=== PATIENT | male | born 1945 | race Caucasian/White ===

== ENCOUNTER 2025-09-04 07:30 | Inpatient (IN) | payer MEDICAID, OTHER ==
[~2025-09-04] VITALS: Ht 160 cm; Wt 60.8 kg
[2025-09-04 07:33] VITALS: O2SAT 96
[2025-09-04] MEDS: MECLIZINE 25MG TABLET PO ONE (08:28)
[2025-09-04] MEDS: SODIUM CHLORIDE 0.9% 1,000 ML IV ONE (08:28)
[2025-09-04] MEDS: METOCLOPRAMIDE HCL 10MG/2ML VIAL IV ONE (08:28)
[2025-09-04 08:34] LABS: BASOPHILS % 0.9 % (0.0-2.0); EOSINOPHILS % 2.5 % (0.0-5.0); HEMATOCRIT. 42.2 % (42.0-52.0); HEMOGLOBIN. 14.1 g/dL (14.0-18.0); LYMPHOCYTES % 45.2 % (20.0-50.0); MEAN PLATELET VOLUME 7.9 fl (7.4-10.4); MONOCYTES % 6.5 % (2.0-8.0); NEUTROPHILS % 44.9 % (40.0-76.0); PLATELET 271 x1000/uL (130-400); RED BLOOD CELL COUNT 5.17 mill/uL (4.7-6.1); RED CELL DISTRIBUTION WIDTH 13.4 % (11.6-14.6)
[2025-09-04 08:52] LABS: CREATININE 0.9 mg/dL (0.6-1.3); PROTEIN TOTAL 7.7 g/dL (6.0-8.3); UREA NITROGEN BLOOD 8 mg/dL (9-23)
[2025-09-04 08:54] LABS: ASPARTATE AMINOTRANSFERASE 38 IU/L (<34); BILIRUBIN DIRECT 0.1 mg/dL (<=3.0); BILIRUBIN TOTAL 0.5 mg/dL (0.1-1.0)
[2025-09-04 08:55] LABS: TROPONIN I HIGH SENSITIVITY 16 ng/L (3.0-53)
[2025-09-04 09:36] LABS: CLARITY URINE CLEAR (CLEAR); COLOR URINE YELLOW (YELLOW); GLUCOSE URINE NEGATIVE (NEGATIVE); KETONES URINE NEGATIVE (NEGATIVE); LEUKOCYTE ESTERASE URINE NEGATIVE (NEGATIVE); NITRITE URINE NEGATIVE (NEGATIVE); OCCULT BLOOD URINE NEGATIVE (NEGATIVE); PH URINE 8.0 (4.5-8.0); PROTEIN URINE NEGATIVE (NEGATIVE); SPECIFIC GRAVITY URINE 1.012 (1.005-1.030); UROBILINOGEN URINE 0.2 E.U./dL (0.2-1.0)
[2025-09-04 12:43] VITALS: BP 143/73; PULSE 78; RESP 17; TEMP 36.1; O2SAT 98
[2025-09-04 12:55] VITALS: BP 143/71; PULSE 82; RESP 16; TEMP 36.14
[2025-09-04] MEDS ORDERED: IPRATROPIUM/ALBUTEROL 0.5-3(2.5)MG/3ML NEB HHN PRN (14:45)
[2025-09-04] MEDS ORDERED: GUAIFENESIN 200MG/10ML SUGAR FREE UDC PO PRN (14:45)
[2025-09-04] MEDS ORDERED: ACETAMINOPHEN 325MG TABLET PO PRN ×2 (14:45)
[2025-09-04] MEDS ORDERED: MECLIZINE 25MG TABLET PO PRN (14:45)
[2025-09-04] MEDS ORDERED: DOCUSATE SODIUM 100MG CAPSULE PO PRN (14:45)
[2025-09-04] MEDS: SODIUM CHLORIDE 0.9% 1,000 ML IV SCH (14:45)
[2025-09-04] MEDS ORDERED: CLONIDINE 0.1MG TABLET PO PRN (14:45)
[2025-09-04 16:00] VITALS: BP 137/72; PULSE 94; RESP 18; TEMP 36.4; O2SAT 97
[2025-09-04 16:05] LABS: HEPATITIS C AB REACTIVE (Pos) (Negative)
[2025-09-04] MEDS: BLOOD SUGAR DIAGNOSTIC STRIP TEST SCH (16:45)
[2025-09-04 20:00] VITALS: BP 120/63; PULSE 61; RESP 17; TEMP 36.6; O2SAT 97
[2025-09-04] MEDS: ATORVASTATIN CALCIUM 20MG TABLET PO SCH (21:14)
[2025-09-05] VITALS: BP_SYST 106; BP_SYST 109; BP_DIAS 57; BP_DIAS 60; PULSE 74; RESP 17; RESP 18; TEMP 36.4; TEMP 36.7; O2SAT 95
[2025-09-05 04:00] VITALS: BP 117/63; PULSE 59; RESP 16; TEMP 36.3; O2SAT 97
[2025-09-05] MEDS: PANTOPRAZOLE 40MG DR TABLET PO SCH (05:50)
[2025-09-05 07:03] LABS: BASOPHILS % 0.7 % (0.0-2.0); EOSINOPHILS % 1.8 % (0.0-5.0); HEMATOCRIT. 38.0 % (42.0-52.0); HEMOGLOBIN. 12.8 g/dL (14.0-18.0); LYMPHOCYTES % 28.3 % (20.0-50.0); MEAN PLATELET VOLUME 7.6 fl (7.4-10.4); MONOCYTES % 7.6 % (2.0-8.0); NEUTROPHILS % 61.6 % (40.0-76.0); PLATELET 235 x1000/uL (130-400); RED BLOOD CELL COUNT 4.63 mill/uL (4.7-6.1); RED CELL DISTRIBUTION WIDTH 13.3 % (11.6-14.6)
[2025-09-05 07:23] LABS: CREATININE 0.9 mg/dL (0.6-1.3); TRIGLYCERIDE 139 mg/dL (0-150); UREA NITROGEN BLOOD 11 mg/dL (9-23)
[2025-09-05 07:24] LABS: LDL CHOLESTEROL 120 mg/dL (5-100)
[2025-09-05 08:00] VITALS: BP 138/62; PULSE 61; RESP 15; TEMP 36.3; O2SAT 98
[2025-09-05] MEDS: AMLODIPINE 10MG TABLET PO SCH (09:00)
[2025-09-05 12:00] VITALS: BP 108/51; PULSE 58; PULSE 61; RESP 15; RESP 20; TEMP 36.4; O2SAT 98
[2025-09-05] MEDS ORDERED: DEXTROSE 50% WATER 50ML SYRINGE IV PRN ×2 (13:15→18:45)
[2025-09-05 16:00] VITALS: BP 141/64; PULSE 63; RESP 15; TEMP 36.4; O2SAT 98
[2025-09-05] MEDS: CALCIUM GLUCONATE 1GM PREMIX 50 ML IV NR (16:32)
[2025-09-05 20:00] VITALS: BP 141/55; PULSE 68; RESP 68; TEMP 36.9; O2SAT 98
[2025-09-05] MEDS ORDERED: BLOOD SUGAR DIAGNOSTIC STRIP TEST SCH (21:00)
[2025-09-05] MEDS: INSULIN LISPRO 100 UNITS/ML SUBCUT SCH (22:00)
[2025-09-06] VITALS: BP 130/63; PULSE 63; RESP 16; TEMP 37.3; O2SAT 98
[2025-09-06 04:00] VITALS: BP 133/63; PULSE 61; RESP 16; TEMP 36.8; O2SAT 97
[2025-09-06 06:27] LABS: BASOPHILS % 1.0 % (0.0-2.0); EOSINOPHILS % 2.5 % (0.0-5.0); HEMATOCRIT. 38.3 % (42.0-52.0); HEMOGLOBIN. 12.8 g/dL (14.0-18.0); LYMPHOCYTES % 34.1 % (20.0-50.0); MEAN PLATELET VOLUME 8.4 fl (7.4-10.4); MONOCYTES % 9.4 % (2.0-8.0); NEUTROPHILS % 53.0 % (40.0-76.0); PLATELET 230 x1000/uL (130-400); RED BLOOD CELL COUNT 4.68 mill/uL (4.7-6.1); RED CELL DISTRIBUTION WIDTH 13.1 % (11.6-14.6)
[2025-09-06 06:48] LABS: CREATININE 0.9 mg/dL (0.6-1.3); UREA NITROGEN BLOOD 13 mg/dL (9-23)
[2025-09-06 06:50] LABS: PHOSPHORUS 3.5 mg/dL (2.5-4.9)
[2025-09-06 08:00] VITALS: BP 136/67; PULSE 67; RESP 68; TEMP 36.4; O2SAT 98
[2025-09-06] MEDS: MAGNESIUM 2 G PREMIX 50 ML IV NR (08:44)
[2025-09-06 12:00] VITALS: BP 133/63; PULSE 80; RESP 18; TEMP 36.2; O2SAT 98
[2025-09-06 16:00] VITALS: BP 150/70; PULSE 80; RESP 18; TEMP 36.6; O2SAT 98
[2025-09-06 20:00] VITALS: BP 139/61; PULSE 68; RESP 16; TEMP 36.9; O2SAT 96
[2025-09-07] VITALS: BP 134/69; PULSE 65; RESP 18; TEMP 36.6; O2SAT 96
[2025-09-07 04:00] VITALS: BP 126/65; PULSE 62; RESP 18; TEMP 36.6; O2SAT 96
[2025-09-07] MEDS ORDERED: AMLO-375 PO (11:54)
[2025-09-07] MEDS ORDERED: CALC-1042 MT (11:55)
[2025-09-07] MEDS ORDERED: OMEG100017 PO (11:56)
[2025-09-07] MEDS ORDERED: MECL-217 MT (12:57)
[2025-09-07] MEDS ORDERED: METF-1150 MT (14:44)
[2025-09-07 15:43] VITALS: BP 146/66; PULSE 64; RESP 18; TEMP 97.1
== END 2025-09-07 16:00 | disposition home or self-care (01) | DRG 111 ==
LOC: ER 08:11 → EDBEDREQ 08:18 → 5WST 09:55 → EDBEDREQ 09:59 → EDBEDREQTM 09:59 → EDBEDREQ 10:00
PROVIDERS: ADMIT Student in an Organized Health Care Education/Training Program; ATTEND Student in an Organized Health Care Education/Training Program
DX: H81.11 Benign paroxysmal vertigo, right ear (principal); B19.20 Unspecified viral hepatitis C without hepatic coma; I10 Essential (primary) hypertension; E11.9 Type 2 diabetes mellitus without complications; N40.0 Benign prostatic hyperplasia without lower urinary tract symptoms
CPT/HCPCS: 36415; 71045; 80048; 80061; 80076; 81003; 82962; 83036; 83735; 84100; 84484; 85025; 86705; 87340; 93005; 93306; 93970; 96361; 96365; 96375; 97165; 99285; J0612; J1815; J2765; J3475; J7030; J8597